=== PATIENT | female | born 1995 | race Caucasian/White ===

== ENCOUNTER 2016-11-07 11:48 | Emergency (ER) | payer MEDICAID ==
[~2016-11-07] VITALS: Ht 162.6 cm; Wt 65.8 kg
[2016-11-07] MEDS ORDERED: BACTRIM DS 8001 TA1 PO (12:38)
--- NOTE | 2016-11-07 12:38 | Emergency Room Report ---
History of Present Illness Time Seen by 1235 Presenting Problem in Triage Pt arrived:Walked Presenting Problem:2 PING PONG BALL SIZED RED RAISED AREAS UNDER R AXILLA, PT REPORTS AREAS HAVE BEEN PRESENT X4 DAYS. REPORTS ONE AREA "BUSTED" OPEN ON IT'S OWN THIS MORNING. 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 N Clinical Suspician of Infection? N Mental Status: 1 - Regular (Normal Baseline) Sepsis Risk:Low Sepsis Risk Have you (or family members/close friends) recently traveled outside the [place]? N If Yes, where/when: Have you had exposure to infectious disease within the past month? N TB? Other? Specify: Source patient, RN/MD Exam Limitations no limitations Comment This is a 20-year-old female patient presenting to the emergency room with a RIGHT axillary mass, for the past 2-3 days. She has a history of previous IV drug abuse. ALLERGIES Coded Allergies: ondansetron (From ZOFRAN ( HYDROCHLORIDE)) (11/07/16) History Medical History General CAD? No Angina: No RI: No Hypertension? No Hyperlipidemia? No CHF? No DVT? No PE? No COPD? No Asthma? No Anemia? No GERD? No Gastric ulcers? No GI Bleed? No Hernia? No Thyroid Problems? No Hypothyroidism? No CVA? No Seizures? No Diabetes? No Renal Insuffiency? No End Stage Renal Disease? No UTI? No Stones? No BPH? No GB Disease: No Nephritic Syndrome? No Asplenia? No Hepatitis? No Sickle Cell Disease? No Arthritis? No Migraines? No Cataracts? No Glaucoma? No MRSA? No HIV? No TB? No Anxiety? No Depression? No Cancer? No More? 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 No: respiratory distress. Lung Sounds bilateral: normal breath sounds, lungs clear. 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 No Comment 12:20pm- procedure (I and D) attempted on the RIGHT axilla, with patient lying in LEFT lateral decubitus. After explained procedure, and cleaning patient's RIGHT axillary area with Betadine, on first superficial stick with the needle, required for local anesthesia, the patient started screaming, kicking and cursing, advising that she is no longer agreeable with procedure. Advised patient will contact the general surgeon to see if she can be taken to the Operating Room, for same procedure. The patient d/c-ed from the ER AMA. 12:25pm- case d/w dr Canales, agreeable to see patient in the office today at 2: 00pm. 14:15-was called from Dr. Canales's office advising the patient was a no-show. Results/Orders Current Medication Orders Sig/Fariha Start time Last Medication Dose Route Stop Time Status Admin Trimethoprim/ 2 TABLET ONCE ONE 11/07 1245 CKDr Sulfamethoxazole PO 11/07 1246 Lidocaine HCl 0 .STK-MED ONE 11/07 1203 DC .ROUTE Departure Departure Time of Disposition 1239 Disposition Against Medical Advice Clinical Impression Primary Impression: Abscess Condition STABLE Referrals DEISY CANALES MD today at 02:00pm Patient Instructions DI for Skin Abscess Additional Instructions Please follow up with dr Canales this afternoon in the office, as arranged today while in the ER. Discharge Counseling Counseled pt/family regarding diagnosis, medications/RX, home care, follow up needs Comment Please follow up with dr Canales this afternoon in the office, as arranged today while in the ER. Prescriptions Current Visit Scripts SULFAMETHOXAZOLE W/TRIMETHOPRI (Bactrim Ds Tab) 1 TABLET PO BID #20 TAB ED Critical Care Critical Care No at 0830
--- NOTE | 2016-11-07 12:38 | Emergency Room Report ---
History of Present Illness Time Seen by 1235 Presenting Problem in Triage Pt arrived:Walked Presenting Problem:2 PING PONG BALL SIZED RED RAISED AREAS UNDER R AXILLA, PT REPORTS AREAS HAVE BEEN PRESENT X4 DAYS. REPORTS ONE AREA "BUSTED" OPEN ON IT'S OWN THIS MORNING. 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 N Clinical Suspician of Infection? N Mental Status: 1 - Regular (Normal Baseline) Sepsis Risk:Low Sepsis Risk Have you (or family members/close friends) recently traveled outside the [place]? N If Yes, where/when: Have you had exposure to infectious disease within the past month? N TB? Other? Specify: Source patient, RN/MD Exam Limitations no limitations Comment This is a 20-year-old female patient presenting to the emergency room with a RIGHT axillary mass, for the past 2-3 days. She has a history of previous IV drug abuse. ALLERGIES Coded Allergies: ondansetron (From ZOFRAN ( HYDROCHLORIDE)) (11/07/16) History Medical History General CAD? No Angina: No CA: No Hypertension? No Hyperlipidemia? No CHF? No DVT? No PE? No COPD? No Asthma? No Anemia? No GERD? No Gastric ulcers? No GI Bleed? No Hernia? No Thyroid Problems? No Hypothyroidism? No CVA? No Seizures? No Diabetes? No Renal Insuffiency? No End Stage Renal Disease? No UTI? No Stones? No BPH? No GB Disease: No Nephritic Syndrome? No Asplenia? No Hepatitis? No Sickle Cell Disease? No Arthritis? No Migraines? No Cataracts? No Glaucoma? No MRSA? No HIV? No TB? No Anxiety? No Depression? No Cancer? No More? 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 No: respiratory distress. Lung Sounds bilateral: normal breath sounds, lungs clear. 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 No Comment 12:20pm- procedure (I and D) attempted on the RIGHT axilla, with patient lying in LEFT lateral decubitus. After explained procedure, and cleaning patient's RIGHT axillary area with Betadine, on first superficial stick with the needle, required for local anesthesia, the patient started screaming, kicking and cursing, advising that she is no longer agreeable with procedure. Advised patient will contact the general surgeon to see if she can be taken to the Operating Room, for same procedure. The patient d/c-ed from the ER AMA. 12:25pm- case d/w dr Canales, agreeable to see patient in the office today at 2: 00pm. 14:15-was called from Dr. Canales's office advising the patient was a no-show. Results/Orders Current Medication Orders Sig/Fariha Start time Last Medication Dose Route Stop Time Status Admin Trimethoprim/ 2 TABLET ONCE ONE 11/07 1245 CKDr Sulfamethoxazole PO 11/07 1246 Lidocaine HCl 0 .STK-MED ONE 11/07 1203 DC .ROUTE Departure Departure Time of Disposition 1239 Disposition Against Medical Advice Clinical Impression Primary Impression: Abscess Condition STABLE Referrals DEISY CANALES MD today at 02:00pm Patient Instructions DI for Skin Abscess Additional Instructions Please follow up with dr Canales this afternoon in the office, as arranged today while in the ER. Discharge Counseling Counseled pt/family regarding diagnosis, medications/RX, home care, follow up needs Comment Please follow up with dr Canales this afternoon in the office, as arranged today while in the ER. Prescriptions Current Visit Scripts SULFAMETHOXAZOLE W/TRIMETHOPRI (Bactrim Ds Tab) 1 TABLET PO BID #20 TAB ED Critical Care Critical Care No at 0830
--- OUTSIDE RECORDS SUMMARY | 2016-11-07 12:44 | External Medical Summary Rpt ---
Author Author , ERASTO MAURER Address Unknown Phone [email or web address] Care Team Providers Care Tug Captain Name Role Phone [facility] Unavailable [facility] Unavailable Unavailable PHYSICIANS, [id number], Unavailable Unavailable [id number] Un[facility]available [facility] IN[facility], [facility] Unavailable Unavailable [facility], Unavailable Unavailable [email or web address], Unavailable [facility]available [facility], Unavailable Unavailable [facility] Unavailable Unavailable LAB, [facility] Unavailable Unavailable [facility], [facility] Un[facility] Unavailable [facility], [facility] Un[facility] Un[facility] KAYLA GAY, Unavailable Unavailable [facility]ICKSIL[facility] BROTHERS JR, Unavailable Unavailable SILVESTRE FARIAS AMIRA LISSETTE, Unavailable Unavailable AMIRA LISSETTE AMIRA LISSETTE, Unavailable Unavailable AMIRA LISSETTE [facility] Unavailable Unavailable [facility] GREEN, Unavailable Unavailable ST. ISAURO RANGEL, Unavailable Unavailable ISAURO SHABAZZ Purpose Continuity of Care Document - 10-20-2008 through 2016 Problems Code Diagnosis DOS Provider Status [id number] CELLULITIS 09-08-2016 . RIGHT JAYESH FINGER PETER L089 LOCAL INF 09-08-2016 . THE SKIN & JAYESH SUBCUTANEOU PETER S TISSUE UNS [id number] LACERATION 09-08-2016 ST. W/O FB RT JAYESH THUMB W/O PETER DAMAGE NAIL SEQ T148 OTHER 09-08-2016 [facility] UNSPECIFIED PHYSICIANS BODY REGION Z23 ENCOUNTER 09-08-2016 [facility] IMMUNIZATIO PETER N R4182 ALTERED 05-02-2016 [facility] MENT[facility] CO STATUS AMBULANCE UNSPECIFIED [facility] R442 OTHER 05-02-2016 [facility] HALLUCINATI CO ONS AMBULANCE [facility] 67697 CHLAMYDTRAC 06-27-2011 PATHOLOGY & HOMATIS CYTOLOGY INFECTION LAB LOWER SITES V221 SUPERVISION 06-27-2011 PATHOLOGY & OF OTHER CYTOLOGY NORMAL LAB 6260 ABSENCE OF 02-28-2011 AM[facility] MENSTRUATIO LISSETTE N V222 02-28-2011 [facility] INCIDENTAL V289 UNSPECIFIED 02-28-2011 [facility] SCREENING V7388 SPECIAL SCR 02-28-2011 [facility] PATHOLOGIST EXAMINATION S PLC OTH SPEC CHLAMYDIAL DZ V745 SCREENING 02-28-2011 ASS[facility]ATED EXAMINATION PATHOLOGIST FOR S PLC VENEREAL DISEASE V762 SCREENING 02-28-2011 [facility] FOR PATHOLOGIST MALIGNANT S PLC NEOPLASM OF THE CERVIX V220 SUPERVISION 02-14-2011 [facility] V7242 02-14-2011 [facility] OR [facility] POSITIVE RESULT 45601 OPEN WOUND 10-18-2009 EMERGENCY FOREARM CARE PHYS WITHOUT [facility] MENTION COMPLICATIO N 462 ACUTE 12-16-2008 PATIENT PHARYNGITIS FIRST PHYS 6264 IRREGULAR 12-16-2008 PATIENT MENSTRUAL FIRST PHYS CYCLE V6549 OTHER 12-16-2008 PATIENT SPECIFIED FIRST PHYS COUNSELING 59849 UNSPECIFIED 11-27-2008 PATIENT VIRAL FIRST [facility] INFECTION IN CCE & UNS SITE V2501 GENERAL 10-20-2008 [facility]SEL[facility] HE[facility] PRESCRIPTIO CENTRAL N ORAL BANK ACCT CONTRACEPTS L03.011 Cellulitis of right finger L08.9 Local infection of the skin and subcutaneou s tissue, unspecified T14.8 Other injury of unspecified body region Medications Na ND Rx Da Fi Fi Am Da Di Ph RX Ph St me C No te ll ll ou ys ag ar # ys at rm s nt no ma ic us Or Da si cy ia de te s n re d IB 49 06 07 24 6 00 KE Ac UP 48 -1 -0 .0 00 NT ti RO 30 7- 7- 00 00 UC ve FE 60 20 20 89 [place] N 35 17 17 78 60 0 40 CV 0 S MG PH AR TA MA BL CY ET LL C, DB A CV S PH AR MA CY #0 54 37 CE 68 06 07 40 10 00 KE Ac PH 18 -1 -0 .0 00 NT ti AL 00 7- 7- 00 00 UC ve EX 12 20 20 89 [place] IN 20 17 17 78 2 38 CV 50 S 0 PH MG AR MA CA CY PS UL LL E C, DB A CV S PH AR MA CY #0 54 37 GIRON 65 06 07 20 10 00 KE Ac LF 86 -1 -0 .0 00 NT ti AM 20 7- 7- 00 00 UC ve ET 42 20 20 89 [place] HO 00 17 17 78 XA 5 39 CV ZO S LE PH -T AR MP MA CY DS LL TA C, BL ET DB A CV S PH AR MA CY #0 54 37 MU 00 06 07 22 14 00 KE Ac PI 09 -1 -0 .0 00 NT ti RO 31 7- 7- 00 00 UC ve CI 01 20 20 89 [place] N 04 17 17 78 2% 2 37 CV S OI PH NT AR ME MA NT CY LL C, DB A CV S PH AR MA CY #0 54 37 AM 00 09 10 00 20 10 CV 50 KA Ac OX 09 -2 -0 .0 S 67 LF ti IC 33 3- 8- 00 PH 21 ve IL 10 20 20 AR LI 90 09 09 MA TX N 5 CY NA 50 C 0 #5 MG 43 7 CA PS UL E Immunization Name Date Rout CVX Reac Dose Comm Prov Is Faci e tion ent ider Refu lity Give sed n TDAP 06- [address] 6-20 MARYELLEN MARYELLEN VACC 17 ABET ABET INE H H 7 GRAN GRAN YRS/ T T > IM Procedures Procedure DOS Code Location Performer Comment IM ADM [id number] [facility] PRQ ID 7 JAYESH JAYESH SUBQ/IM PETER PETER NJXS 1 VACCINE TDAP 63881 [facility] VACCINE 7 7 JAYESH JAYESH YRS/> IM PETER PETER BASIC 49594 [facility]OLIC [address] [facility] PETER PETER CALCIUM TOTAL RADEX 08489 [facility] FINGR 7 JAYESH JAYESH MINIMUM 2 PETRE PETER VIEWS INCISION 9[address] [facility] & 7 JAYESH JAYESH DRAINAGE PETER PETER ABSCESS SIMPLE/SI NGLE GONADOTRO 87009 [facility] PIN 7 ROARING GAP JAYESH CHORIONIC PETER PETER QUALITATI VE BLOOD [address] COUNT 7 JAYESH MCCONNELL COMPLETE PETER PETER AUTO&AUTO DIFRNTL WBC GROUND A0425 [facility] MILEAGE 7 CO CO PER AMBULANCE AMBULANCE STATUTE [facility] MILE AMBULANCE A0429 [facility] SERVICE 7 CO CO BLS AMBULANCE AMBULANCE EMERGENCY [facility] TRANSPORT IADNA 85373 PATHOLOGY PICKLESIM CHLAMYDIA 2 & ER JR VICTOR HUGO CYTOLOGY TRACHOMAT LAB IS AMPLIFIED PROBE TQ CYTP C/V 27308 PATHOLOGY PICKLESIM AUTO THIN 2 & ER JR VICTOR HUGO LYR CYTOLOGY PREPJ SCR LAB MNL RESCR PHYS IADNA 04314 PATHOLOGY PICKLESIM NEISSERIA 2 & ER JR VICTOR HUGO CYTOLOGY GONORRHOE LAB AE AMPLIFIED PROBE TQ IADNA 93089 [facility] [place] NEISSERIA [address] GONORRHOE STS PLC AE [place]IFIED PROBE TQ URINE 35003 AMIRA AMIRA 1 LISSETTE LISSETTE TEST VISUAL COLOR CMPRSN METHS CYTP C/V 61379 ASSOCIATE [place] AUTO THIN [address] LYR PATHOLOGI PREPJ SCR STS PLC MNL RESCR PHYS CULTURE 19469 PATH PATH BACTERIAL 1 GROUP GROUP LAB[facility] LABS [facility] QUANTTATI VE COLONY COUNT URINE IADNA 21136 ASSOCIATE [place] CHLAMYDIA [address]OLOGI TRACHOMAT STS PLC IS AMPLIFIED PROBE TQ IADNA 05557 AMIRA AMIRA CHLAMYDIA 1 LISSETTE LISSETTE TRACHOMAT IS DIRECT PROBE TQ URINE 00817 [facility] 1 N CO N CO TEST [facility] VISUAL CENTER CENTER COLOR CMPRSN METHS SIMPLE 85793 EMERGENCY INFANTE JAM REPAIR 0 CARE SCALP/NEC PHYS K/AX/[facility] T/TRUNK 2.5CM/< URINE 04355 PATIENT SHABAZZ, 9 FIRST ISAURO TEST PHYS VISUAL COLOR CMPRSN METHS IADNA 35030 [facility] CHLAMYDIA 9 HEALTH N CO [facility] TRACHOMAT BANK ACCT CENTER IS AMPLIFIED PROBE TQ URINE 98995 [facility] 9 HEALTH N CO TEST [facility] VISUAL BANK ACCT CENTER COLOR CMPRSN METHS IADNA 88510 [facility] NEISSERIA 9 HEALTH N CO [facility] GONORRHOE BANK ACCT CENTER AE AMPLIFIED PROBE TQ CYTP C/V [address] AUTO THIN 9 JAYESH MCCONNELL LYR PREPJ SCR MEDICALCE MEDICALCE MNL NTER NTER RESCR PHYS CONTRACEP S4993 [facility] TIVE 9 HEALTH N CO PILLS FOR [facility] BANK ACCT CENTER CONTROL Encounters Encounter Start End Date Code Location Performer Type Date HOSPITAL ST[facility] - 7 7 JAYESH OUTPATIEN PETER T EMERGENCY [address] ST 7 7 JAYESH DEPARTMEN PETER T VISIT MODERATE SEVERITY EMERGENCY 63782 [facility] 7 7 EMERGENCY DEPARTMEN T VISIT PHYSICIAN HIGH/URGE S NT SEVERITY OFFICE 55170 AMIRA AMIRA OUTPATIEN 1 1 LISSETTE LISSETTE T NEW 45 MINUTES OFFICE 28510 [facility] OUTPATIEN 1 1 N CO N CO T VISIT [address] CENTER MINUTES EMERGENCY 05425 EMERGENCY INFANTE JAM 0 0 CARE DEPARTMEN PHYS T VISIT [facility] HIGH/URGE NT SEVERITY OFFICE 56133 PATIENT MELE, OUTPATIEN 9 9 FIRST ISAURO T VISIT PHYS 25 MINUTES OFFICE 85515 PATIENT DINORA OUTPATIEN 9 9 FIRST SILVESTRE Hayes T NEW 30 PHYS [address] - 9 9 JAYESH RODRÍGUEZEN T MEDICALCE NTER INITIAL 97729 [facility] PREVENTIV 9 9 HEALTH N CO E [facility] MEDICINE BANK ACCT CENTER NEW PT AGE 12-17 YR
--- OUTSIDE RECORDS SUMMARY | 2016-11-07 12:44 | External Medical Summary Rpt ---
Author Author , ERASTO MAURER Address Unknown Phone [email or web address] Care Team Providers Care Hair Weaver Name Role Phone [facility]OC[facility]ATED Unavailable [facility] Unavailable Unavailable PHYSICIANS, [id number], Unavailable Unavailable [facility] Unavailable [facility]available [facility], INFANTE JAM Unavailable Unavailable [facility], Unavailable Unavailable [place], Unavailable [facility]available [facility], Unavailable Unavailable [facility] [...] AMIRA LISSETTE ST JAYESH Unavailable Unavailable [facility] GREEN, Unavailable Unavailable ST. ISAURO RANGEL, Unavailable Unavailable ISAURO SHABAZZ Purpose Continuity of Care Document - 10-20-2008 through 2016 Problems Code Diagnosis DOS Provider Status [id number] CELLULITIS 09-08-2016 . RIGHT JAYESH FINGER PETER L089 LOCAL INF 09-08-2016 . THE SKIN & JAYESH SUBCUTANEOU PETER S TISSUE UNS [id number] LACERATION 09-08-2016 ST. W/O FB RT JAYESH THUMB W/O PETER DAMAGE NAIL SEQ T148 OTHER 09-08-2016 [facility] OF EMERGENCY UNSPECIFIED PHYSICIANS BODY REGION Z23 ENCOUNTER 09-08-2016 [facility] IMMUNIZATIO PETER N R4182 ALTERED 05-02-2016 [facility] STATUS AMBULANCE UNSPECIFIED TAXIN R442 OTHER 05-02-2016 [facility] HALLUCINATI CO ONS AMBULANCE TAXIN 37016 CHLAMYDTRAC 06-27-2011 PATHOLOGY & HOMATIS CYTOLOGY INFECTION [...] [facility] POSITIVE RESULT 63347 OPEN WOUND 10-18-2009 EMERGENCY FOREARM CARE PHYS WITHOUT NORTHERN MENTION COMPLICATIO N 462 ACUTE 12-16-2008 PATIENT PHARYNGITIS FIRST PHYS 6264 IRREGULAR 12-16-2008 PATIENT MENSTRUAL FIRST PHYS CYCLE V6549 OTHER 12-16-2008 PATIENT SPECIFIED FIRST PHYS COUNSELING 93570 UNSPECIFIED 11-27-2008 PATIENT VIRAL FIRST PHYS INFECTION [...] 20 AR LI 90 09 09 MA PR N 5 CY NA 50 C 0 [...] DOS Code Location Performer Comment IM ADM 66807 [facility] PRQ ID 7 JAYESH JAYESH SUBQ/IM PETER PETER NJXS 1 VACCINE TDAP 01667 [facility] VACCINE 7 7 JAYESH JAYESH YRS/> IM PETER PETER BASIC 84475 [facility] MET[facility]OLIC 7 [facility]ER PETER CALCIUM TOTAL RADEX 79208 [facility] FINGR 7 JAYESH JAYESH MINIMUM 2 PETER PETER VIEWS INCISION 79795 [facility] ST. & 7 JAYESH JAYESH DRAINAGE PETER PETER ABSCESS SIMPLE/SI NGLE GONADOTRO 95829 [facility] PIN 7 [place] JAYESH CHORIONIC PETER PETER QUALITATI VE BLOOD [address] COUNT 7 JAYESH MCCONNELL COMPLETE PETER PETER AUTO&AUTO DIFRNTL WBC GROUND A0425 [facility] AVRIL MILEAGE 7 CO CO PER AMBULANCE AMBULANCE STATUTE TAXIN TAXIN MILE AMBULANCE A0429 [facility] AVRIL SERVICE 7 CO CO BLS AMBULANCE AMBULANCE EMERGENCY TAXIN TAXIN TRANSPORT IADNA 39203 PATHOLOGY PICKLESIM CHLAMYDIA 2 & ER JR VICTOR HUGO CYTOLOGY TRACHOMAT LAB IS AMPLIFIED PROBE TQ CYTP C/V 43931 PATHOLOGY PICKLESIM AUTO THIN 2 & ER JR VICTOR HUGO LYR CYTOLOGY PREPJ SCR LAB MNL RESCR PHYS IADNA 64518 PATHOLOGY PICKLESIM NEISSERIA 2 & ER JR VICTOR HUGO CYTOLOGY GONORRHOE LAB AE AMPLIFIED PROBE TQ IADNA 93391 [facility] [place] NEISSERIA [address] PATHOLOGI GONORRHOE STS PLC AE AMPLIFIED PROBE TQ URINE 11811 AMIRA AMIRA 1 LISSETTE LISSETTE TEST VISUAL COLOR CMPRSN METHS CYTP C/V 10312 ASSOCIATE [place] AUTO THIN [address] LYR PATHOLOGI PREPJ SCR STS PLC MNL RESCR PHYS CULTURE 11860 PATH PATH BACTERIAL 1 [facility] QUANTTATI VE COLONY COUNT URINE IADNA 28186 ASSOC[facility] [place] CHLAMYDIA [address] PATHOLOGI TRACHOMAT STS PLC IS AMPLIFIED PROBE TQ IADNA 99893 AMIRA AMIRA CHLAMYDIA 1 LISSETTE LISSETTE TRACHOMAT IS DIRECT PROBE TQ URINE 63190 [facility] 1 N CO N CO TEST [facility] VISUAL CENTER CENTER COLOR CMPRSN METHS SIMPLE 87860 EMERGENCY INFANTE JAM REPAIR 0 CARE SCALP/NEC PHYS K/AX/LUMA [facility] T/TRUNK 2.5CM/< URINE 50567 PATIENT SHABAZZ, 9 FIRST ISAURO TEST PHYS VISUAL COLOR CMPRSN METHS IADNA 98360 [facility] [place] CHLAMYDIA 9 HEALTH N CO [facility] TRACHOMAT BANK ACCT CENTER IS AMPLIFIED PROBE TQ URINE 09767 [facility] [place] 9 HEALTH N CO TEST [facility] VISUAL BANK ACCT CENTER COLOR CMPRSN METHS IADNA 44270 [facility] [place] NEISSERIA 9 HEALTH N CO [facility] GONORRHOE BANK ACCT CENTER AE AMPLIFIED PROBE TQ CYTP C/V [address] AUTO THIN 9 JAYESH MCCONNELL LYR PREPJ SCR MEDICALCE MEDICALCE MNL NTER NTER RESCR PHYS CONTRACEP S4993 [facility] [place] TIVE 9 HEALTH N CO PILLS FOR [facility] BANK ACCT CENTER CONTROL Encounters Encounter Start End Date Code Location Performer Type Date HOSPITAL ST. - 7 7 JAYESH OUTPATIEN PETER T EMERGENCY [address] ST 7 7 JAYESH DEPARTMEN PETER T VISIT MODERATE SEVERITY EMERGENCY 51736 [facility] 7 7 EMERGENCY DEPARTMEN T VISIT PHYSICIAN HIGH/URGE S NT SEVERITY OFFICE 33234 AMIRA AMIRA OUTPATIEN 1 1 LISSETTE LISSETTE T NEW 45 MINUTES OFFICE 84506 [place] [facility] OUTPATIEN 1 1 N CO N CO T VISIT [address] CENTER MINUTES EMERGENCY 98461 EMERGENCY INFANTE JAM 0 0 CARE DEPARTMEN PHYS T VISIT [facility] HIGH/URGE NT SEVERITY OFFICE 15722 PATIENT MELE, OUTPATIEN 9 9 FIRST ISAURO T VISIT PHYS 25 MINUTES OFFICE 28353 PATIENT DINORA OUTPATIEN 9 9 FIRST SILVESTRE Hayes T NEW 30 PHYS [address] - 9 9 JAYESH RODRÍGUEZEN T MEDICALCE NTER INITIAL 29148 [facility] [place] PREVENTIV 9 9 HEALTH N CO E [facility] MEDICINE BANK ACCT CENTER NEW PT AGE 12-17 YR
--- OUTSIDE RECORDS SUMMARY | 2016-11-07 12:45 | External Medical Summary Rpt ---
Author Author , ERASTO MAURER Address Unknown Phone [email or web address] Name Relationship Address Phone ALEAH, Next Of Kin Unknown Unavailable CLARISSA Immunization Name Date Rout CVX Reac Dose Comm Prov Is Faci e tion ent ider Refu lity Give sed n Tdap 06-1 115 0.5 Hist 1050 No 1050 , 6-20 mL oric 0 0 Adso 17 al rbed Info rmat ion - Sour ce Unsp ecif ied HPV4 07-2 Intr 62 999 Hist H196 No H196 8-20 amus oric (Gar 09 cula al dasi r Info l) rmat ion - Sour ce Unsp ecif ied
--- OUTSIDE RECORDS SUMMARY | 2016-11-07 12:45 | External Medical Summary Rpt ---
Author Author , ERASTO MAURER Address Unknown Phone [email or web address] Support Name Relationship Address Phone ALEAH, Next [...]
--- OUTSIDE RECORDS SUMMARY | 2016-11-07 12:45 | External Medical Summary Rpt ---
Author Author , ERASTO Organization ERASTO Address Unknown Phone [email or web address] Care Team Providers Care Glass Mechanic Name Role Phone ASSOCIATED Unavailable [facility] Unavailable Unavailable PHYSICIANS, [facility], Unavailable Unavailable [facility] EM[facility]GENCY [facility] Unavailable Unavailable [facility], INFANTE JAM Unavailable Unavailable [address], Unavailable Unavailable [facility] [address] [facility], Unavailable [facility]available [facility], Unavailable [facility]available [facility] Unavailable Unavailable LAB, PATHOLOGY & CYTOLOGY LAB [facility] Unavailable Unavailable [facility], [facility] Unavailable Unavailable [facility]ENTER, [facility] Unavailable Unavailable [facility]ANCE [facility] Unavailable Unavailable [facility]ANCE [facility], [facility] PICKWILLIAM GAY, Unavailable Unavailable PICKSHANNENIMER SILVESTRE LONDONO, Unavailable Unavailable SILVESTRE FARIAS AMIRA LISSETTE, Unavailable Unavailable AMIRA LISSETTE AMIRA LISSETTE, Unavailable Unavailable AMIRA LISSETTE ST JAYESH Unavailable Unavailable [facility] J[facility]ESH GREEN, Unavailable Unavailable ISAURO NAPIER, Unavailable Unavailable ISAURO SHABAZZ Purpose Continuity of Care Document - 10-20-2008 through 2016 Problems Code Diagnosis DOS Provider Status [id number] CELLULITIS 09-08-2016 . RIGHT AJYESH FINGER PETER L089 LOCAL INF 09-08-2016 . THE SKIN & JAYESH SUBCUTANEOU PETER S TISSUE UNS [id number] LACERATION 09-08-2016 ST. W/O FB RT JAYESH THUMB W/O PETER DAMAGE NAIL SEQ T148 OTHER 09-08-2016 [facility]Y OF EMERGENCY UNSPECIFIED PHYSICIANS BODY REGION Z23 ENCOUNTER 09-08-[address] [facility] IMMUNIZATIO PETER N R4182 ALTERED 05-02-2016 [facility] STATUS AMBULANCE UNSPECIFIED TAXIN R442 OTHER 05-02-2016 [facility] HALLUCINATI CO ONS AMBULANCE TAXIN 67022 CHLAMYDTRAC 06-27-2011 PATHOLOGY & HOMATIS CYTOLOGY INFECTION [...] [facility] POSITIVE RESULT 63413 OPEN WOUND 10-18-2009 EMERGENCY FOREARM CARE PHYS WITHOUT NORTHERN MENTION COMPLICATIO N 462 ACUTE 12-16-2008 PATIENT PHARYNGITIS FIRST PHYS 6264 IRREGULAR 12-16-2008 PATIENT MENSTRUAL FIRST PHYS CYCLE V6549 OTHER 12-16-2008 PATIENT SPECIFIED FIRST PHYS COUNSELING 83804 UNSPECIFIED 11-27-2008 PATIENT VIRAL FIRST PHYS INFECTION IN CCE & UNS SITE V2501 GENERAL 10-20-2008 [facility] COUNSELING HE[facility] PRESCRIPTIO CENTRAL N ORAL BANK ACCT CONTRACEPTS Medications Na ND Rx Da Fi Fi [...] 20 AR LI 90 09 09 MA HI N 5 CY NA 50 C 0 #5 MG 43 7 CA PS UL E Immunization Name Date Rout CVX Reac Dose Comm Prov Is Faci e tion ent ider Refu lity Give sed n TDAP 08-[address] 620 MARYELLEN MARYELLEN VACC 17 ABET ABET INE H H 7 GRAN GRAN YRS/ T T > IM Procedures Procedure DOS Code Location Performer Comment IM ADM 67618 [facility] PRQ ID 7 JAYESH JAYESH SUBQ/IM PETER PETER NJXS 1 VACCINE TDAP 67649 [facility] VACCINE 7 7 JAYESHRENAE MUNGUIATH YRS/> IM PETER PETER GONADOTRO 50517 [facility] PIN [address] [place] [address] JAYESH CHORIONIC PETER PETER QUALITATI VE BLOOD 25061 [facility] COUNT 7 [facility] COMPLETE PETER PETER AUTO&AUTO DIFRNTL WBC INCISION 32773 [facility] & 7 EMERGENCY EMERGENCY DRAINAGE ABSCESS PHYSICIAN PHYSICIAN SIMPLE/SI S S NGLE RADEX 69429 [facility] FINGR 7 [place] JAYESH MINIMUM 2 PETER PETER VIEWS BASIC 84985 [facility] METABOLIC 7 [facility] PANEL PETER PETER CALCIUM TOTAL GROUND A0425 [facility] MILEAGE 7 CO CO PER AMBULANCE AMBULANCE STATUTE TAXIN TAXIN MILE AMBULANCE A0429 [facility] SERVICE 7 CO CO BLS AMBULANCE AMBULANCE EMERGENCY TAXIN [facility]AX[facility] TRANSPORT CYTP C/V 13629 PATHOLOGY PICKLESIM AUTO THIN 2 & ER JR VICTOR HUGO LYR CYTOLOGY PREPJ SCR LAB MNL RESCR PHYS IADNA 70810 PATHOLOGY PICKLESIM NEISSERIA 2 & ER JR VICTOR HUGO CYTOLOGY GONORRHOE LAB AE AMPLIFIED PROBE TQ IADNA 88708 PATHOLOGY PICKLESIM CHLAMYDIA 2 & ER JR VICTOR HUGO CYTOLOGY TRACHOMAT LAB IS AMPLIFIED PROBE TQ IADNA 03598 [facility] [place] CHLAMYDIA [address]OLOGI TRACHOMAT STS PLC IS AMPLIFIED PROBE TQ URINE 65855 AMIRA AMIRA 1 LISSETTE LISSETTE TEST VISUAL COLOR CMPRSN METHS CULTURE 34716 PATH PATH BACTERIAL 1 [facility] QUANTTATI VE COLONY COUNT URINE IADNA 76684 [facility] [place] NEISSERIA [address]OLOG[address] GONORRHOE STS PLC AE AMPLIFIED PROBE TQ CYTP C/V 73558 ASSOCIATE [place] AUTO THIN [address] LYR PATHOLOGI PREPJ SCR STS PLC MNL RESCR PHYS IADNA 63258 AMIRA AMIRA CHLAMYDIA 1 LISSETTE LISSETTE TRACHOMAT IS DIRECT PROBE TQ URINE 55565 [facility] 1 N CO N CO TEST [facility] VISUAL CENTER CENTER COLOR CMPRSN METHS SIMPLE 62716 EMERGENCY INFANTE JAM REPAIR 0 CARE SCALP/NEC PHYS K/AX/LUMA [facility] T/TRUNK 2.5CM/< URINE 01546 PATIENT SHABAZZ, 9 FIRST ISAURO TEST PHYS VISUAL COLOR CMPRSN METHS IADNA 93138 [facility] [place] CHLAMYDIA 9 HEALTH N CO [facility] TRACHOMAT BANK ACCT CENTER IS AMPLIFIED PROBE TQ URINE 30262 [facility] [place] 9 HEALTH N CO TEST [facility] VISUAL BANK ACCT CENTER COLOR CMPRSN METHS CONTRACEP S4993 [facility] [place] TIVE 9 HEALTH N CO PILLS FOR [facility] B[facility] ACCT C[facility] CONTROL CYTP C/V [address] AUTO THIN 9 JAYESHRENAE MCCONNELL LYR PREPJ SCR MEDICALCE MEDICALCE MNL NTER NTER RESCR PHYS IADNA 59435 [facility] [place] NEISSERIA 9 HEALTH N [facility] GONORRHOE BANK ACCT CENTER AE AMPLIFIED PROBE TQ Encounters Encounter Start End Date Code Location Performer Type Date EMERGENCY [address] ST. 7 7 JAYESH DEPARTMEN PETER T VISIT MODERATE SEVERITY [facility]OSPITAL ST. - 7 7 JAYESH OUTPATIEN PETER T EMERGENCY 40885 [facility] 7 7 EMERGENCY DEPARTMEN T VISIT PHYSICIAN HIGH/URGE S NT SEVERITY OFFICE 02205 AMIRA AMIRA OUTPATIEN 1 1 LISSETTE LISSETTE T NEW 45 MINUTES OFFICE 76180 [facility] OUTPATIEN 1 1 N CO N CO T VISIT [address] CENTER MINUTES EMERGENCY 00269 EMERGENCY INFANTE JAM 0 0 CARE DEPARTMEN PHYS T VISIT [facility] HIGH/URGE NT SEVERITY OFFICE 26027 PATIENT SHABAZZ, OUTPATIEN 9 9 FIRST ISAURO T VISIT PHYS 25 MINUTES OFFICE 11513 PATIENT DINORA, OUTPATIEN 9 9 FIRST SILVESTRE Hayes T NEW 30 PHYS [address] [facility] [address] - 9 9 JAYESH GREGG T MEDICALCE NTER INITIAL 55324 [facility] [place] PREVENTIV 9 9 HEALTH N CO E [facility] MED[facility] ACCT CENTER NEW PT AGE 12-17 YR
--- OUTSIDE RECORDS SUMMARY | 2016-11-07 12:45 | External Medical Summary Rpt ---
Author Author ERASTO Martin, ERA[employer]O [employer] Organization [employer] Address Unknown Phone Unavailable Results XR FINGER RIGHT MINIMUM 2 VW Observa Value Referen Units Interpr Notes Date tion ce etation Range \.br\XR No No No No Sep 08 FINGER informa informa informa informa 2017 RIGHT tion in tion in tion in tion in 6:48 PM MINIMUM source source source source 2 VW data data data data 09/09/19 17 6:48 PM\.br\ \.br\CL INICAL: -WOUND INFECTI ON\.br\ \.br\Co mpariso n: None\.b r\\.br\ FINDING S: There is a soft tissue defect the tip of the thumb consist ent\.br \patien t's soft tissue injury. There is swellin g about the thumb. No focal\. br\area \.br\of bone destruc tion suspect for osteomy elitis identif ied. No foreign body.\. br\\.br \IMPRES EVELIN:\. br\No evidenc e of osteomy elitis. No foreign body.\. br\ HCG Qual Observa Value Referen Units Interpr Notes Date tion ce etation Range HCG Negativ No No No No Sep 08 QUAL e informa informa informa informa 2016 tion in tion in tion in tion in 7:03 PM source source source source data data data data Auto Diff Observa Value Referen Units Interpr Notes Date tion ce etation Range Neutrop 61.4 No % No No Sep 08 hils informa informa informa 2016 [#/volu tion in tion in tion in 6:58 PM me] in source source source Blood data data data by Automat ed count Lymphoc 27.7 No % No No Sep 08 ytes informa informa informa 2016 [#/volu tion in tion in tion in 6:58 PM me] in source source source Blood data data data by Automat ed count Monocyt 7.1 No % No No Aug 16 es informa informa informa 2017 [#/volu tion in tion in tion in 6:58 PM me] in source source source Blood data data data by Automat ed count Eos 3.3 No % No No Munir 16 Percent informa informa informa 2017 tion in tion in tion in 6:58 PM source source source data data data Baso 0.5 No % No No Munir 16 Percent informa informa informa 2017 tion in tion in tion in 6:58 PM source source source data data data Neut# 5.7 1.8 - x10(3)/ No No Munir 16 7.7 mcL informa informa 2017 tion in tion in 6:58 PM source source data data Lymph# 2.6 0.6 - x10(3)/ No No Munir 16 4.8 mcL informa informa 2017 tion in tion in 6:58 PM source source data data Juncos# 0.7 0.0 - x10(3)/ No No Munir 16 1.3 mcL informa informa 2017 tion in tion in 6:58 PM source source data data Eos# 0.3 0.0 - x10(3)/ No No Munir 16 0.5 mcL informa informa 2017 tion in tion in 6:58 PM source source data data Baso# 0.0 0.0 - x10(3)/ No No Munir 16 0.2 mcL informa informa 2017 tion in tion in 6:58 PM source source data data CBC Observa Value Referen Units Interpr Notes Date tion ce etation Range LEUKOCY 9.3 4.0 - x10(3)/ No No Munir 16 SINA 11.0 mcL informa informa 2017 tion in tion in 6:58 PM source source data data Erythro 4.63 3.80 - x10(6)/ No No Aug 16 cytes 5.10 mcL informa informa 2017 [#/volu tion in tion in 6:58 PM me] in source source Blood data data by Automat ed count Hemoglo 12.1 12.0 - gm/dL No No Aug 16 bin 15.6 informa informa 2017 [Mass/v tion in tion in 6:58 PM olume] source source in data data Blood Hematoc 37.3 35.7 - % No No Sep 08 rit 45.9 informa informa 2017 [Volume tion in tion in 6:58 PM source source Fractio data data n] of Blood by Automat ed count Erythro 80.6 82.5 - fL Low No Sep 08 cyte 99.8 informa 2016 mean tion in 6:58 PM corpusc source ular data volume [Entiti c volume] by Automat ed count Erythro 26.2 27.0 - pg Low No Sep 08 cyte 34.3 informa 2016 mean tion in 6:58 PM corpusc source ular data hemoglo bin [Entiti c mass] by Automat ed count Erythro 32.5 32.1 - gm/dL No No Sep 08 cyte 35.3 informa informa 2017 mean tion in tion in 6:58 PM corpusc source source ular data data hemoglo bin concent ration [Mass/v olume] by Automat ed count Erythro 16.7 11.5 - % High No Sep 08 cyte 15.0 inform 2017 distrib tion in 6:58 PM ution source width data [Ratio] by Automat ed count Platele 218 144 - x10(3)/ No No Sep 08 ts 423 mcL informa informa 2017 [#/volu tion in tion in 6:58 PM me] in source source Blood data data by Automat ed count MPV 7.2 6.8 - fL No No Sep 08 10.8 informa informa 2017 tion in tion in 6:58 PM source source data data
--- OUTSIDE RECORDS SUMMARY | 2016-11-07 12:45 | External Medical Summary Rpt ---
[...] in 6:58 PM source source data data [place]# 0.7 0.0 - x10(3)/ No No Munir [...]
--- OUTSIDE RECORDS SUMMARY | 2016-11-07 12:45 | External Medical Summary Rpt ---
Author Author , ERASTO Organization ERASTO Address Unknown Phone [email or web address] Care Team Providers Care Analytical Chemist Name Role Phone ASSOCIATED Unavailable [facility] Unavailable Unavailable PHYSICIANS, [facility] PHYSICIANS [facility], Unavailable Unavailable [facility] Unavailable Unavailable [facility] IN[facility], INFANTE JAM Unavailable Unavailable [employer] [address], Unavailable Unavailable [address] [email or web address] [facility], Unavailable Unavailable PATH GROUP [...] AMIRA LISSETTE ST JAYESH Unavailable Unavailable [facility] GREEN, Unavailable Unavailable ISAURO NAPIER, Unavailable Unavailable ISAURO SHABAZZ Purpose Continuity of Care Document - 10-20-2008 through 2016 Problems Code Diagnosis DOS Provider Status [id number] CELLULITIS 09-08-2016 . RIGHT JAYESH FINGER PETER L089 LOCAL INF 09-08-2016 . THE SKIN & JAYESH SUBCUTANEOU PETER S TISSUE UNS [id number] LACERATION 09-08-2016 ST. W/O FB RT JAYESH THUMB W/O PETER DAMAGE NAIL SEQ T148 OTHER 09-08-2016 [facility] INJURY OF EMERGENCY UNSPECIFIED PHYSICIANS BODY REGION Z23 ENCOUNTER 09-08-2016 [facility] IMMUNIZATIO PETER N R4182 ALTERED 05-02-2016 [facility] STATUS AMBULANCE UNSPECIFIED TAXIN R442 OTHER 05-02-2016 [facility] HALLUCINATI CO ONS AMBULANCE TAXIN 03658 CHLAMYDTRAC 06-27-2011 PATHOLOGY & HOMATIS CYTOLOGY INFECTION [...] CO HEALTH OR TEST CENTER POSITIVE RESULT 25711 OPEN WOUND 10-18-2009 EMERGENCY FOREARM CARE PHYS WITHOUT NORTHERN MENTION COMPLICATIO N 462 ACUTE 12-16-2008 PATIENT PHARYNGITIS FIRST PHYS 6264 IRREGULAR 12-16-2008 PATIENT MENSTRUAL FIRST PHYS CYCLE V6549 OTHER 12-16-2008 PATIENT SPECIFIED FIRST PHYS COUNSELING 13584 UNSPECIFIED 11-27-2008 PATIENT VIRAL FIRST PHYS INFECTION [...] 20 AR LI 90 09 09 MA IL N 5 CY NA 50 C 0 [...] DOS Code Location Performer Comment IM ADM 75004 [facility] PRQ ID 7 JAYESH JAYESH SUBQ/IM PETER PETER NJXS 1 VACCINE TDAP 04286 [facility] VACCINE 7 7 JAYESHRENAE MUNGUIATH YRS/> IM PETER PETER GONADOTRO 38542 [facility] PIN [address] [place] [address] JAYESH CHORIONIC PETER PETER QUALITATI VE BLOOD 98389 [facility] COUNT 7 [facility] COMPLETE PETER PETER AUTO&AUTO DIFRNTL WBC INCISION 96496 [facility] & 7 EMERGENCY EMERGENCY DRAINAGE ABSCESS PHYSICIAN PHYSICIAN SIMPLE/SI S S NGLE RADEX 08387 [facility] FINGR 7 [place] JAYESH MINIMUM 2 PETER PETER VIEWS BASIC 89605 [facility] METABOLIC 7 [facility] PANEL PETER PETER CALCIUM TOTAL GROUND A0425 [facility] MILEAGE 7 CO CO PER AMBULANCE AMBULANCE STATUTE TAXIN TAX[facility] MILE AMBULANCE A0429 [facility] SERVICE 7 CO CO BLS AMBULANCE AMBULANCE EMERGENCY TAXIN TAXIN TRANSPORT CYTP C/V 62526 PATHOLOGY PICKLESIM AUTO THIN 2 & ER JR VICTOR HUGO LYR CYTOLOGY PREPJ SCR LAB MNL RESCR PHYS IADNA 12940 PATHOLOGY PICKLESIM NEISSERIA 2 & ER JR VICTOR HUGO CYTOLOGY GONORRHOE LAB AE AMPLIFIED PROBE TQ IADNA 28597 PATHOLOGY PICKLESIM CHLAMYDIA 2 & ER JR VICTOR HUGO CYTOLOGY TRACHOMAT LAB IS AMPLIFIED PROBE TQ IADNA 22797 [facility]OCI[facility] CHLAMYDIA [address]OLOG[address] TRACHOMAT STS PLC IS AMPLIFIED PROBE TQ URINE 01446 AMIRA AMIRA 1 LISSTETE LISSETTE TEST VISUAL COLOR CMPRSN METHS CULTURE 01037 PATH PATH BACTERIAL 1 [facility] QUANTTATI VE COLONY COUNT URINE IADNA 63522 ASSOCIATE [facility] NEISSERIA [address] PATHOLOG[address] GONORRHOE STS PLC AE AMPLIFIED PROBE TQ CYTP C/V 08710 ASSOCIATE [place] AUTO THIN [address] LYR PATHOLOGI PREPJ SCR STS PLC MNL RESCR PHYS IADNA 59165 AMIRA AMIRA CHLAMYDIA 1 LISSETTE LISSETTE TRACHOMAT IS DIRECT PROBE TQ URINE 59610 [facility] 1 N CO N CO TEST [facility] VISUAL C[facility] CENTER COLOR CMPRSN METHS SIMPLE 84230 EMERGENCY INFANTE JAM REPAIR 0 CARE SCALP/NEC PHYS K/AX/LUMA [facility] T/TRUNK 2.5CM/< URINE 73479 PATIENT SHABAZZ, 9 FIRST ISAURO TEST PHYS VISUAL COLOR CMPRSN METHS IADNA 09917 [facility] [place] CHLAMYDIA 9 HEALTH N CO [facility] TRACHOMAT BANK ACCT CENTER IS AMPLIFIED PROBE TQ URINE 41631 [facility]/CO [place] 9 HEALTH N CO TEST [facility] VISUAL BANK ACCT CENTER COLOR CMPRSN METHS CONTRACEP S4993 [facility] [place] TIVE 9 HEALTH N CO PILLS FOR [facility] BANK ACCT CENTER CONTROL CYTP C/V [address] AUTO THIN 9 JAYESHRENAE MCCONNELL LYR PREPJ SCR MEDICALCE MEDICALCE MNL NTER NTER RESCR PHYS IADNA 51792 [facility] NEISSERIA 9 HEALTH N [facility] BANK ACCT CENTER AE AMPLIFIED PROBE TQ Encounters Encounter Start End Date Code Location Performer Type Date EMERGENCY [address] [facility] 7 7 JAYESH DEPARTMEN PETER T VISIT MODERATE SEVERITY [facility] - 7 7 JAYESH OUTPATIEN PETER T EMERGENCY 06896 [place] 7 7 EMERGENCY DEPARTMEN T VISIT PHYSICIAN HIGH/URGE S NT SEVERITY OFFICE 84686 AMIRA AMIRA OUTPATIEN 1 1 LISSETTE LISSETTE T NEW 45 MINUTES OFFICE 04289 [place] OUTPATIEN 1 1 N CO N CO T VISIT [address] CENTER MINUTES EMERGENCY 76565 EMERGENCY INFANTE JAM 0 0 CARE DEPARTMEN PHYS T VISIT [facility] HIGH/URGE NT SEVERITY OFFICE 39436 PATIENT SHABAZZ, OUTPATIEN 9 9 FIRST ISAURO T VISIT PHYS 25 MINUTES OFFICE 66985 PATIENT DINORA, OUTPATIEN 9 9 FIRST SILVESTRE Hayes T NEW [address] - 9 9 JAYESH GREGG T MEDICALCE NTER INITIAL 04786 [facility] PREVENTIV 9 9 HEALTH N CO E [facility] MEDICINE BANK ACCT CENTER NEW PT AGE 12-17 YR
[2016-11-07 12:54] VITALS: BP 113/59
== END 2016-11-07 12:54 | disposition left against medical advice (07) ==
LOC: ER 11:48
DX: L02.411 Cutaneous abscess of right axilla (principal)